=== PATIENT | female | born 1950 | race Caucasian/White ===

== ENCOUNTER 2018-04-27 10:50 | Day surgery (SDC) | payer MEDICARE, MEDICAID ==
[~2018-04-27] VITALS: Ht 167.6 cm; Wt 100.1 kg
[2018-04-27] VITALS (12 sets, daily range): BP systolic 98–138; BP diastolic 41–83
[2018-04-27] MEDS ORDERED: LORazepam 0.5 MG tablet PO PRN (11:25)
[2018-04-27] MEDS ORDERED: normal saline 1000ml 1,000 ML IV SCH (11:25)
[2018-04-27] MEDS ORDERED: nitroGLYCERIN 0.4mg SUBLingual tab SL PRN (11:25)
[2018-04-27] MEDS ORDERED: diphenhydrAMINE 25mg capsule PO PRN (11:25)
[2018-04-27 12:17] LABS: BASOPHILS % (AUTO) 0.2 % (0-1); EOSINOPHILS # (AUTO) 0.2 X10'3 (0-0.9); EOSINOPHILS % (AUTO) 1.9 % (0-6); HEMATOCRIT 42.2 % (35.0-45.0); HEMOGLOBIN 14.1 g/dl (12.0-16.0); LYMPHOCYTES # (AUTO) 1.5 X10'3 (1.1-4.8); LYMPHOCYTES % (AUTO) 16.5 % (21-51); MEAN CORPUSCULAR HEMOGLOBIN 32.2 PG (27.0-31.0); MEAN CORPUSCULAR HGB CONC 33.5 % (33.0-36.5); MEAN CORPUSCULAR VOLUME 96.1 FL (78-98); MEAN PLATELET VOLUME 9.6 FL (7.4-10.4); MONOCYTES # (AUTO) 0.5 X10'3 (0-0.9); MONOCYTES % (AUTO) 5.7 % (2-12); NEUTROPHILS # (AUTO) 6.7 X10'3 (1.8-7.7); NEUTROPHILS % (AUTO) 75.7 % (42-75); PLATELET COUNT 203 X10'3 (140-440); RED BLOOD COUNT 4.39 X10'6 (4.20-5.60); RED CELL DISTRIBUTION WIDTH 15.1 % (11.5-14.5); WHITE BLOOD COUNT 8.8 X10'3 (4.5-11.0)
[2018-04-27] MEDS ORDERED: PROP10TA10 PO (12:23)
[2018-04-27] MEDS ORDERED: LOSA25TA96 PO (12:23)
[2018-04-27] MEDS ORDERED: CARSR60C PO (12:23)
[2018-04-27] MEDS ORDERED: ASPI-1264 PO (12:23)
[2018-04-27] MEDS ORDERED: OMEP20TA23 PO (12:23)
[2018-04-27] MEDS ORDERED: LEVO50TA PO (12:23)
[2018-04-27 13:05] LABS: ALBUMIN 3.3 G/DL (3.4-5.0); ANION GAP 12 (8-16); BLOOD UREA NITROGEN 12 MG/DL (7-18); BUN/CREATININE RATIO 16.2 (6.6-38.0); CALCIUM 8.5 MG/DL (8.5-10.1); CHLORIDE 102 MMOL/L (99-107); CREATININE 0.74 MG/DL (0.40-0.90); GLUCOSE 98 MG/DL (70-104); PARTIAL THROMBOPLASTIN TIME 25 SECONDS (22-32); POTASSIUM 4.2 MMOL/L (3.5-5.1); SODIUM 139 MMOL/L (135-145); TOTAL CARBON DIOXIDE 25.5 MMOL/L (24-32); eGFR 79 ML/MIN
[2018-04-27] MEDS ORDERED: LIDOcaine 1% (10mg/ml)w/preservative injection 20ml MDV ONE (13:40)
[2018-04-27] MEDS ORDERED: iohexol 350MG/ML 100ml bottle IV ONE (13:40)
[2018-04-27] MEDS ORDERED: fentaNYL/PF 50MCG/1 ML 2ML syringe ONE (13:40)
[2018-04-27] MEDS ORDERED: midazolam 2 mg/2 ml injection ONE ×2 (13:40→14:02)
[2018-04-27] MEDS ORDERED: iohexol 350 MG/ML 50ML vial IV ONE (13:40)
[2018-04-27] MEDS ORDERED: HYDROcodone/acetaminophen 10/325mg tab PO PRN (16:15)
[2018-04-27] MEDS ORDERED: ondansetron/PF 4mg/2ml inj IV PRN (16:15)
[2018-04-27] MEDS ORDERED: proCHLORperazine 10 MG/2 ml inj IV PRN (16:15)
[2018-04-27] MEDS ORDERED: OXAZEpam 15mg capsule PO PRN (16:15)
[2018-04-27] MEDS ORDERED: HYDROcodone/acetaminophen 5mg/325mg tablet PO PRN (16:15)
[2018-04-27] MEDS ORDERED: acetaminophen 325mg tablet PO PRN (16:15)
== END 2018-04-27 20:34 | disposition home or self-care (01) ==
LOC: SSTAY O 10:50
PROVIDERS: ATTEND Internal Medicine Cardiovascular Disease
DX: I25.10 Atherosclerotic heart disease of native coronary artery without angina pectoris (principal); I48.2 Chronic atrial fibrillation; I10 Essential (primary) hypertension; F41.1 Generalized anxiety disorder; M19.90 Unspecified osteoarthritis, unspecified site; E03.9 Hypothyroidism, unspecified; Z88.0 Allergy status to penicillin; Z88.2 Allergy status to sulfonamides; Z88.8 Allergy status to other drugs, medicaments and biological substances; Z90.49 Acquired absence of other specified parts of digestive tract; Z90.710 Acquired absence of both cervix and uterus; Z72.89 Other problems related to lifestyle; Z79.82 Long term (current) use of aspirin; Z98.890 Other specified postprocedural states; Z79.899 Other long term (current) drug therapy
CPT/HCPCS: 36415; 71046; 80048; 85025; 85610; 85730; 93458; 99152; 99153; A6257; C1760; C1769; J1644; J2001; J2250; J3010; J7030; Q0163; Q9967; A4620

== ENCOUNTER 2018-06-14 05:16 | Inpatient (IN) | payer MEDICARE, MEDICAID ==
[2018-06-12 14:39] LABS: BASOPHILS # (AUTO) 0.1 X10'3 (0-0.2); BASOPHILS % (AUTO) 1.3 % (0-1); EOSINOPHILS # (AUTO) 0.1 X10'3 (0-0.9); EOSINOPHILS % (AUTO) 1.3 % (0-6); LYMPHOCYTES # (AUTO) 1.8 X10'3 (1.1-4.8); LYMPHOCYTES % (AUTO) 19.4 % (21-51); MEAN CORPUSCULAR HEMOGLOBIN 31.9 PG (27.0-31.0); MEAN CORPUSCULAR HGB CONC 33.5 % (33.0-36.5); MEAN PLATELET VOLUME 9.5 FL (7.4-10.4); MONOCYTES # (AUTO) 0.5 X10'3 (0-0.9); MONOCYTES % (AUTO) 5.6 % (2-12); NEUTROPHILS % (AUTO) 72.4 % (42-75); PRE OP HEMATOCRIT 45.4 % (35.0-45.0); PRE OP HEMOGLOBIN 15.2 g/dL (12.0-16.0); PRE OP PLATELET COUNT 248 X10'3 (140-440); RED BLOOD COUNT 4.78 X10'6 (4.20-5.60); RED CELL DISTRIBUTION WIDTH 12.9 % (11.5-14.5)
[2018-06-12 14:56] LABS: HEMOGLOBIN A1C 5.3 % (4.5-6.2)
[2018-06-12 14:58] LABS: CLARITY,URINE SLIGHTLY CLOUDY (Clear); COLOR,URINE YELLOW (Yellow); GLUCOSE, URINE NEGATIVE (Neg); KETONES,URINE NEGATIVE (Neg); LEUKOCYTE ESTERASE ,URINE TRACE (Neg); NITRITES, URINE NEGATIVE (Neg); OCCULT BLOOD,URINE NEGATIVE (Neg); PH,URINE 5.5 (4.8-8.0); PROTEIN,URINE NEGATIVE (Neg); UROBILINOGEN,URINE 0.2 E.U/dL (0.2-1.0)
[2018-06-12 15:01] LABS: ALBUMIN 3.3 G/DL (3.4-5.0); ALBUMIN/GLOBULIN RATIO 0.9 (1.1-1.5); ALKALINE PHOSPHATASE 95 IU/L (46-116); BLOOD UREA NITROGEN 15 MG/DL (7-18); BUN/CREATININE RATIO 18.5 (6.6-38.0); CALCIUM 9.2 MG/DL (8.5-10.1); CHLORIDE 101 MMOL/L (99-107); CREATININE 0.81 MG/DL (0.40-0.90); PRE OP ALT 29 U/L (30-65); PRE OP ANION GAP 7 (8-16); PRE OP AST 19 U/L (10-37); PRE OP BILIRUB, TOTAL 0.7 MG/DL (0.0-1.0); PRE OP GLUCOSE 127 MG/DL (70-104); PRE OP POTASSIUM 3.8 MMOL/L (3.4-5.1); PRE OP SODIUM 139 MMOL/L (135-145); TOTAL CARBON DIOXIDE 30.8 MMOL/L (24-32); TOTAL PROTEIN 7.1 G/DL (6.4-8.2); eGFR 71 ML/MIN
[2018-06-12 15:03] LABS: UA COLLECTION TYPE CLN CATCH MIDSTREAM
[2018-06-12 15:11] LABS: MUCUS STRANDS MANY /LPF (Neg); SQUAMOUS EPITHELIAL CELL,UR MANY /LPF (FEW)
[2018-06-12 15:12] LABS: BACTERIA,URINE FEW /HPF (Neg); RBC,URINE 0-2 /HPF (0-2); WBC,URINE 0-4 /HPF (0-4)
[2018-06-13 05:25] LABS: ABG HCO3 24.9 mmol/L (22.0-26.0); ABG PCO2 (T) 37.3 mmHg (32.0-45.0); ABG PH (T) 7.442 (7.350-7.450); ABG PO2 (T) 88.3 mmHg (83-108); ALLEN'S TEST Positive; FCOHb 0.8 % (0.5-1.5); FMetHb 0.1 % (0.3-1.12); FO2Hb 96.1 % (94-100); TOTAL HEMOGLOBIN 15.6 G/dl (12.0-16.0)
[2018-06-14] VITALS (17 sets, daily range): BP systolic 92–136; BP diastolic 51–92
[~2018-06-14] VITALS: Ht 167.6 cm; Wt 110.0 kg
[2018-06-14] MEDS: insulin regular, human 100 UNIT in normal saline 100ml IV soln 99 ML IV SCH ×2 (05:00)
[~2018-06-14 05:16] MED LIST: ASPI-1264 PO; CARSR60C PO; LEVO50TA PO; LOSA25TA96 PO; OMEP20TA23 PO; PROP10TA10 PO; dextrose 50%-water 50ml dispensing syringe IV PRN; ringers solution, lacted 1,000 ML IV SCH
[2018-06-14] MEDS ORDERED: DOCUMENT DATE & TIME OF BETA-BLOCKER PO ONE (05:30)
[2018-06-14] MEDS ORDERED: cefazolin/dext.iso 2gm/100 ML IV ONE (05:30)
[2018-06-14] MEDS ORDERED: mupirocin 2% nasal ointment 1gm UD NS ONE (05:30)
[2018-06-14] MEDS ORDERED: dextrose 50%-water 50ml dispensing syringe IV PRN ×2 (05:30→11:15)
[2018-06-14] MEDS ORDERED: famotidine 20mg tablet PO ONE (05:30)
[2018-06-14] MEDS ORDERED: LORazepam 2 mg/ml vial IV ONE (05:30)
[2018-06-14] MEDS ORDERED: vancomycin inj 1,500 MG in normal saline 300ml IV soln IV ONE (05:30)
[2018-06-14] MEDS ORDERED: LIDOcaine 1% (10mg/ml) 2ml vial ONE (05:55)
[2018-06-14] MEDS ORDERED: INSULIN R 100 UNIT in NS 100ML (1 UNIT/1 ML) BAG IV ONE (06:41)
[2018-06-14] MEDS ORDERED: protamine sulf. 10mg/ml inj. IV ONE (06:41)
[2018-06-14] MEDS ORDERED: aminocaproic acid 250 MG/1 ML inj. ONE ×2 (06:41→09:00)
[2018-06-14] MEDS ORDERED: DOPamine/D5W 400mg/250ml bag IV ONE (06:41)
[2018-06-14] MEDS ORDERED: sevoflurane 250ml liquid IH ONE (06:41)
[2018-06-14] MEDS ORDERED: nitroGLYCERIN in D5W 50mg/250ml (Tridil) infusion IV ONE (06:41)
[2018-06-14] MEDS ORDERED: niCARDipine in NS 40mg/200ml (0.2mg/ml) IVPB IV ONE (06:41)
[2018-06-14] MEDS ORDERED: MIDAZolam 1mg/ml 10ml vial ONE (06:43)
[2018-06-14] MEDS ORDERED: SUFENTANIL CITRATE 50 MCG/ML 2ml ampule IV ONE (06:43)
[2018-06-14 07:50] LABS: ABG BASE EXCESS -0.4 mmol/L (-2.0-3.0); ABG HCO3 23.4 mmol/L (22.0-26.0); ABG OXYGEN SATURATION 99.4 % (95-98); ABG PCO2 35.6 mmHg (35.0-45.0); ABG PH 7.435 (7.350-7.450); ABG PO2 246.1 mmHg (60.0-100.0); CL (ABG) 103 mmol/L (99-107); FCOHb 0.7 % (0.5-1.5); FMetHb 0.3 % (0.3-1.12); FO2Hb 98.4 % (94-100); GLUCOSE (ABG) 129 mg/dl (70-105); IONIZED CA (ABG) 1.14 mmol/L (1.03-1.32); K (ABG) 3.8 mmol/L (3.3-5.1); NA (ABG) 134 mmol/L (135-145); TOTAL HEMOGLOBIN 13.1 G/dl (12.0-16.0)
[2018-06-14] MEDS ORDERED: vancomycin 1,000mg inj ONE (07:55)
[2018-06-14] MEDS ORDERED: heparin 10,000 units/1 ML INJ IR ONE (08:00)
[2018-06-14] MEDS ORDERED: rocuronium 10mg/ml inj IV ONE ×3 (08:01)
[2018-06-14] MEDS ORDERED: propofol inj 20 ML IV ONE ×2 (08:01)
[2018-06-14] MEDS ORDERED: papaverine 30 mg/ml 2ml inj. IA ONE (08:05)
[2018-06-14] MEDS ORDERED: heparin 1,000 units/ml 10ml inj ONE (09:00)
[2018-06-14] MEDS ORDERED: albumin (human) 25% 100 ML IV solution IV ONE (09:00)
[2018-06-14] MEDS ORDERED: calcium chloride 100 MG/1 ML inj IV ONE (09:00)
[2018-06-14] MEDS ORDERED: heparin 10,000 units/1 ML INJ ONE (09:00)
[2018-06-14] MEDS ORDERED: LIDOcaine 2% (20 mg/ml) 5ml cardiac syringe ONE (09:00)
[2018-06-14] MEDS ORDERED: magnesium sulf 1 GM/2 ML ONE (09:00)
[2018-06-14] MEDS ORDERED: sodium bicarbonate (8.4%) 1 mEq/ml syringe ONE (09:00)
[2018-06-14] MEDS ORDERED: potassium Cl 2 mEq/ml inj IV ONE (09:00)
[2018-06-14] MEDS ORDERED: phenylephrine 10mg/ml inj. ONE (09:00)
[2018-06-14] MEDS ORDERED: methylPREDNISolone sod succ 1000mg vial ONE (09:00)
[2018-06-14 09:10] LABS: ABG BASE EXCESS -0.3 mmol/L (-2.0-3.0); ABG HCO3 23.2 mmol/L (22.0-26.0); ABG OXYGEN SATURATION 99.1 % (95-98); ABG PCO2 33.6 mmHg (35.0-45.0); ABG PH 7.457 (7.350-7.450); ABG PO2 332.4 mmHg (60.0-100.0); CL (ABG) 103 mmol/L (99-107); FCOHb 0.3 % (0.5-1.5); FMetHb 0.4 % (0.3-1.12); FO2Hb 98.4 % (94-100); GLUCOSE (ABG) 113 mg/dl (70-105); IONIZED CA (ABG) 1.01 mmol/L (1.03-1.32); K (ABG) 4.5 mmol/L (3.3-5.1); NA (ABG) 131 mmol/L (135-145)
[2018-06-14 09:31] LABS: ABG BASE EXCESS VENOUS -0.1 mmol/L; ABG HCO3 VENOUS 24.8 mmol/L; ABG PCO2 VENOUS 41.6 mmHg; ABG PO2 VENOUS 49.1 mmHg; CL (ABG) 103 mmol/L (99-107); FCOHb VENOUS 0.4 %; FHHb VENOUS 16.1 %; FMetHb VENOUS 0.4 %; FO2Hb VENOUS 83.1 %; GLUCOSE (ABG) 112 mg/dl (70-105); IONIZED CA (ABG) 1.03 mmol/L (1.03-1.32); NA (ABG) 132 mmol/L (135-145); TOTAL HEMOGLOBIN 9.8 G/dl (12.0-16.0)
[2018-06-14 10:11] LABS: ABG BASE EXCESS 2.5 mmol/L (-2.0-3.0); ABG HCO3 26.8 mmol/L (22.0-26.0); ABG OXYGEN SATURATION 99.2 % (95-98); ABG PCO2 40.2 mmHg (35.0-45.0); ABG PH 7.441 (7.350-7.450); ABG PO2 412.9 mmHg (60.0-100.0); CL (ABG) 102 mmol/L (99-107); FCOHb 0.3 % (0.5-1.5); FMetHb 0.4 % (0.3-1.12); FO2Hb 98.5 % (94-100); GLUCOSE (ABG) 154 mg/dl (70-105); IONIZED CA (ABG) 1.23 mmol/L (1.03-1.32); K (ABG) 4.3 mmol/L (3.3-5.1); NA (ABG) 133 mmol/L (135-145); TOTAL HEMOGLOBIN 9.7 G/dl (12.0-16.0)
[2018-06-14 10:11] LABS: ACT @ 1.70 U 301 SEC (193-297); ACT @ 2.84 U 426 SEC (260-420); BASELINE ACT 138 SEC (101-148); PATIENT WEIGHT 96.0k KG
[2018-06-14 10:41] LABS: ABG BASE EXCESS VENOUS 0.7 mmol/L; ABG HCO3 VENOUS 25.3 mmol/L; ABG PCO2 VENOUS 40.7 mmHg; ABG PO2 VENOUS 47.9 mmHg; CL (ABG) 103 mmol/L (99-107); FCOHb VENOUS 0.6 %; FHHb VENOUS 16.9 %; FMetHb VENOUS 0.2 %; FO2Hb VENOUS 82.3 %; GLUCOSE (ABG) 158 mg/dl (70-105); IONIZED CA (ABG) 1.22 mmol/L (1.03-1.32); K (ABG) 4.4 mmol/L (3.3-5.1); NA (ABG) 132 mmol/L (135-145); TOTAL HEMOGLOBIN 9.6 G/dl (12.0-16.0)
[2018-06-14] MEDS ORDERED: sodium chloride 0.45% 1,000 ML IV SCH (11:11)
[2018-06-14] MEDS ORDERED: DOPamine 400mg/D5W 250ml 250 ML IV PRN (11:11)
[2018-06-14] MEDS ORDERED: nitroGLYCERIN-Tridil 50MG/D5W 250 ML IV PRN (11:11)
[2018-06-14] MEDS ORDERED: sodium phosphate inj. 30 MMOL in dextrose 5%-water 250 ML IV PRN (11:15)
[2018-06-14] MEDS ORDERED: pantoprazole 40 MG vial IV ONE (11:15)
[2018-06-14] MEDS ORDERED: Neutra Phos packet PO PRN (11:15)
[2018-06-14] MEDS ORDERED: metoclopramide 5 mg/ml inj IV PRN (11:15)
[2018-06-14] MEDS ORDERED: HYDROcodone/acetaminophen 10/325mg tab PO PRN (11:15)
[2018-06-14] MEDS ORDERED: magnesium hydroxide 30ml (MOM) UD suspension PO PRN (11:15)
[2018-06-14] MEDS ORDERED: normal saline 250ml IV soln 250 ML IV PRN (11:15)
[2018-06-14] MEDS ORDERED: magnesium 4gm in 100ml NS 100 ML IV PRN (11:15)
[2018-06-14] MEDS ORDERED: ondansetron/PF 4mg/2ml inj IV PRN (11:15)
[2018-06-14] MEDS ORDERED: sodium phosphate inj. 15 MMOL in dextrose 5%-water 150 ML IV PRN (11:15)
[2018-06-14] MEDS ORDERED: insulin regular, human inj. 100 UNITS in normal saline 100ml IV soln 100 ML IV SCH ×2 (11:15)
[2018-06-14] MEDS ORDERED: potassium Cl 20mEq/100mL bag 100 ML IV PRN ×2 (11:15)
[2018-06-14] MEDS ORDERED: acetaminophen 325mg tablet PO PRN (11:15)
[2018-06-14 11:44] LABS: BASOPHILS % (AUTO) 0.3 % (0-1); EOSINOPHILS % (AUTO) 0.3 % (0-6); HEMATOCRIT 36.7 % (35.0-45.0); HEMOGLOBIN 12.5 g/dl (12.0-16.0); LYMPHOCYTES # (AUTO) 0.6 X10'3 (1.1-4.8); LYMPHOCYTES % (AUTO) 3.9 % (21-51); MEAN CORPUSCULAR HGB CONC 33.9 % (33.0-36.5); MEAN CORPUSCULAR VOLUME 94.3 FL (78-98); MEAN PLATELET VOLUME 8.5 FL (7.4-10.4); MONOCYTES # (AUTO) 0.4 X10'3 (0-0.9); MONOCYTES % (AUTO) 2.5 % (2-12); NEUTROPHILS # (AUTO) 13.7 X10'3 (1.8-7.7); PLATELET COUNT 129 X10'3 (140-440); RED BLOOD COUNT 3.89 X10'6 (4.20-5.60); RED CELL DISTRIBUTION WIDTH 13.8 % (11.5-14.5); WHITE BLOOD COUNT 14.7 X10'3 (4.5-11.0)
[2018-06-14 11:54] LABS: INR 1.1 INR; PARTIAL THROMBOPLASTIN TIME 26 SECONDS (22-32); PROTHROMBIN TIME 11.2 SECONDS (9.0-12.0)
[2018-06-14 11:55] LABS: ABG BASE EXCESS 0.1 mmol/L (-2.0-3.0); ABG HCO3 23.2 mmol/L (22.0-26.0); ABG PH (T) 7.464 (7.350-7.450); ABG PO2 (T) 204.5 mmHg (83-108); FCOHb 0.2 % (0.5-1.5); FMetHb 0.2 % (0.3-1.12); FO2Hb 98.6 % (94-100); MINUTE VOLUME 7 L/min; PEEP 5 cm H2O; RESPIRATORY RATE 12 b/min; RESPIRATORY RATE (OBSERVED) 12 b/min; TIDAL VOLUME 550 mL; TOTAL HEMOGLOBIN 13.3 G/dl (12.0-16.0)
[2018-06-14 11:59] LABS: ALANINE AMINOTRANSFERASE 19 U/L (12-78); ALBUMIN 2.4 G/DL (3.4-5.0); ALKALINE PHOSPHATASE 60 IU/L (46-116); ANION GAP 6 (8-16); ASPARTATE AMINO TRANSFERASE 26 U/L (10-37); BILIRUBIN,TOTAL 1.1 MG/DL (0.1-1.0); BLOOD UREA NITROGEN 8 MG/DL (7-18); BUN/CREATININE RATIO 11.4 (6.6-38.0); CALCIUM 9.5 MG/DL (8.5-10.1); CHLORIDE 106 MMOL/L (99-107); GLUCOSE 159 MG/DL (70-104); MAGNESIUM 3.1 MG/DL (1.5-2.4); PHOSPHORUS 2.9 MG/DL (2.3-4.5); SODIUM 139 MMOL/L (135-145); TOTAL CARBON DIOXIDE 26.8 MMOL/L (24-32); TOTAL PROTEIN 4.7 G/DL (6.4-8.2); eGFR 84 ML/MIN
[2018-06-14 12:01] LABS: POTASSIUM 4.2 MMOL/L (3.5-5.1)
[2018-06-14] MEDS: albumin (Human) 5% 250ml 250 ML IV PRN ×3 (12:58→13:39)
[2018-06-14] MEDS: insulin Lispro (HumaLOG) vial - multi-dose SQ SCH ×2 (13:00→18:00)
[2018-06-14] MEDS: potassium Cl 20mEq/100mL bag 100 ML IV PRN ×3 (13:33→23:25)
[2018-06-14 14:00] LABS: ACTIVATED CLOTTING TIME 109 SEC (101-148)
[2018-06-14] MEDS: morphine 4 MG/ML inj SYRINge IV PRN ×3 (14:03→19:36)
[2018-06-14] MEDS: ceFAZolin 1GM/D5W- ADD-VANTAGE 50 ML IV SCH (16:16)
[2018-06-14] MEDS: niCARDipine-NS 40mg/200ml IVPB 200 ML IV PRN ×2 (16:21→19:38)
[2018-06-14] MEDS ORDERED: racepinephrine 11.25mg/0.5ml nebule IH PRN (17:35)
[2018-06-14 18:42] LABS: BASOPHILS % (AUTO) 0 % (0-1); EOSINOPHILS # (AUTO) 0.2 X10'3 (0-0.9); EOSINOPHILS % (AUTO) 1.8 % (0-6); HEMATOCRIT 31.6 % (35.0-45.0); HEMOGLOBIN 10.6 g/dl (12.0-16.0); LYMPHOCYTES # (AUTO) 0.3 X10'3 (1.1-4.8); MEAN CORPUSCULAR HEMOGLOBIN 31.9 PG (27.0-31.0); MEAN CORPUSCULAR HGB CONC 33.4 % (33.0-36.5); MEAN CORPUSCULAR VOLUME 95.7 FL (78-98); MEAN PLATELET VOLUME 8.7 FL (7.4-10.4); MONOCYTES # (AUTO) 0.2 X10'3 (0-0.9); MONOCYTES % (AUTO) 1.2 % (2-12); PLATELET COUNT 129 X10'3 (140-440); RED CELL DISTRIBUTION WIDTH 13.4 % (11.5-14.5); WHITE BLOOD COUNT 13.7 X10'3 (4.5-11.0)
[2018-06-14 18:52] LABS: ALBUMIN 3.3 G/DL (3.4-5.0); ANION GAP 8 (8-16); BLOOD UREA NITROGEN 9 MG/DL (7-18); BUN/CREATININE RATIO 11.1 (6.6-38.0); CALCIUM 8.3 MG/DL (8.5-10.1); CHLORIDE 108 MMOL/L (99-107); CREATININE 0.81 MG/DL (0.40-0.90); GLUCOSE 171 MG/DL (70-104); MAGNESIUM 2.3 MG/DL (1.5-2.4); PHOSPHORUS 3.3 MG/DL (2.3-4.5); POTASSIUM 3.7 MMOL/L (3.5-5.1); SODIUM 142 MMOL/L (135-145); TOTAL CARBON DIOXIDE 26.3 MMOL/L (24-32); eGFR 71 ML/MIN
[2018-06-14] MEDS: vancomycin/NS 1 GM ADD-VANTAGE 250 ML IV SCH (19:38)
[2018-06-14] MEDS: mupirocin 2% nasal ointment 1gm UD NS SCH (19:38)
[2018-06-14] MEDS: docusate sod 100mg capsule PO SCH (19:39)
[2018-06-15] VITALS (24 sets, daily range): BP systolic 102–144; BP diastolic 52–95
[2018-06-15] MEDS: ceFAZolin 1GM/D5W- ADD-VANTAGE 50 ML IV SCH ×3 (00:05→16:17)
[2018-06-15] MEDS: morphine 4 MG/ML inj SYRINge IV PRN ×2 (01:52→09:33)
[2018-06-15 02:17] LABS: BASOPHILS # (AUTO) 0.1 X10'3 (0-0.2); BASOPHILS % (AUTO) 0.6 % (0-1); EOSINOPHILS % (AUTO) 0 % (0-6); HEMATOCRIT 29.4 % (35.0-45.0); HEMOGLOBIN 9.8 g/dl (12.0-16.0); LYMPHOCYTES # (AUTO) 0.4 X10'3 (1.1-4.8); LYMPHOCYTES % (AUTO) 2.7 % (21-51); MEAN CORPUSCULAR HEMOGLOBIN 31.8 PG (27.0-31.0); MEAN CORPUSCULAR HGB CONC 33.3 % (33.0-36.5); MEAN CORPUSCULAR VOLUME 95.5 FL (78-98); MEAN PLATELET VOLUME 9.1 FL (7.4-10.4); MONOCYTES # (AUTO) 0.3 X10'3 (0-0.9); MONOCYTES % (AUTO) 2.3 % (2-12); NEUTROPHILS % (AUTO) 94.4 % (42-75); PLATELET COUNT 107 X10'3 (140-440); RED BLOOD COUNT 3.07 X10'6 (4.20-5.60); RED CELL DISTRIBUTION WIDTH 13.9 % (11.5-14.5); WHITE BLOOD COUNT 13.8 X10'3 (4.5-11.0)
[2018-06-15 02:32] LABS: PARTIAL THROMBOPLASTIN TIME 27 SECONDS (22-32); PROTHROMBIN TIME 10.3 SECONDS (9.0-12.0)
[2018-06-15 02:39] LABS: ALANINE AMINOTRANSFERASE 20 U/L (12-78); ALBUMIN 3.1 G/DL (3.4-5.0); ALBUMIN/GLOBULIN RATIO 1.4 (1.1-1.5); ALKALINE PHOSPHATASE 48 IU/L (46-116); ANION GAP 5 (8-16); ASPARTATE AMINO TRANSFERASE 35 U/L (10-37); BILIRUBIN,TOTAL 0.9 MG/DL (0.1-1.0); BLOOD UREA NITROGEN 9 MG/DL (7-18); BUN/CREATININE RATIO 12.7 (6.6-38.0); CALCIUM 8.3 MG/DL (8.5-10.1); CHLORIDE 111 MMOL/L (99-107); CREATININE 0.71 MG/DL (0.40-0.90); GLUCOSE 127 MG/DL (70-104); MAGNESIUM 2.3 MG/DL (1.5-2.4); PHOSPHORUS 3.1 MG/DL (2.3-4.5); POTASSIUM 4.3 MMOL/L (3.5-5.1); SODIUM 142 MMOL/L (135-145); TOTAL CARBON DIOXIDE 26.5 MMOL/L (24-32); TOTAL PROTEIN 5.3 G/DL (6.4-8.2); eGFR 82 ML/MIN
[2018-06-15] MEDS: HYDROcodone/acetaminophen 10/325mg tab PO PRN ×3 (04:40→21:08)
[2018-06-15] MEDS: insulin regular, human 100 UNIT in normal saline 100ml IV soln 99 ML IV SCH ×2 (05:00)
[2018-06-15] MEDS ORDERED: amiodarone 200mg tablet PO ONE (06:40)
[2018-06-15] MEDS ORDERED: aspirin 325mg tablet, delayed-release (Ecotrin) PO SCH (08:00)
[2018-06-15] MEDS ORDERED: amiodarone 200mg tablet PO SCH (08:00)
[2018-06-15] MEDS: metoprolol tartrate 12.5mg (1/2 tablet) PO SCH ×2 (08:00→20:23)
[2018-06-15] MEDS: levoTHYROXINE 25mcg tablet PO SCH (08:29)
[2018-06-15] MEDS: vancomycin/NS 1 GM ADD-VANTAGE 250 ML IV SCH ×2 (08:29→20:23)
[2018-06-15] MEDS: mupirocin 2% nasal ointment 1gm UD NS SCH ×2 (08:29→20:23)
[2018-06-15] MEDS: docusate sod 100mg capsule PO SCH ×2 (08:30→20:23)
[2018-06-15] MEDS: aspirin 81mg tablet.DR PO SCH (08:30)
[2018-06-15] MEDS: insulin Lispro (HumaLOG) vial - multi-dose SQ SCH ×2 (08:37→13:00)
[2018-06-15] MEDS: magnesium 1gm/100ml D5W IVPB 100 ML IV PRN ×2 (15:04→15:48)
[2018-06-16] VITALS (23 sets, daily range): BP systolic 96–153; BP diastolic 56–88
[2018-06-16] MEDS: ceFAZolin 1GM/D5W- ADD-VANTAGE 50 ML IV SCH (00:20)
[2018-06-16] MEDS: HYDROcodone/acetaminophen 10/325mg tab PO PRN ×5 (03:30→19:59)
[2018-06-16 04:01] LABS: BASOPHILS % (AUTO) 0.1 % (0-1); EOSINOPHILS % (AUTO) 0 % (0-6); HEMATOCRIT 27.4 % (35.0-45.0); HEMOGLOBIN 9.1 g/dl (12.0-16.0); LYMPHOCYTES # (AUTO) 0.5 X10'3 (1.1-4.8); LYMPHOCYTES % (AUTO) 2.9 % (21-51); MEAN CORPUSCULAR HEMOGLOBIN 31.9 PG (27.0-31.0); MEAN CORPUSCULAR HGB CONC 33.1 % (33.0-36.5); MEAN CORPUSCULAR VOLUME 96.2 FL (78-98); MEAN PLATELET VOLUME 9.8 FL (7.4-10.4); MONOCYTES # (AUTO) 0.6 X10'3 (0-0.9); MONOCYTES % (AUTO) 3.2 % (2-12); NEUTROPHILS # (AUTO) 16.7 X10'3 (1.8-7.7); NEUTROPHILS % (AUTO) 93.8 % (42-75); PLATELET COUNT 111 X10'3 (140-440); RED BLOOD COUNT 2.85 X10'6 (4.20-5.60); RED CELL DISTRIBUTION WIDTH 14.1 % (11.5-14.5); WHITE BLOOD COUNT 17.8 X10'3 (4.5-11.0)
[2018-06-16 04:04] LABS: ANION GAP 5 (8-16); BLOOD UREA NITROGEN 9 MG/DL (7-18); BUN/CREATININE RATIO 13.8 (6.6-38.0); CALCIUM 8.3 MG/DL (8.5-10.1); CHLORIDE 103 MMOL/L (99-107); CREATININE 0.65 MG/DL (0.40-0.90); GLUCOSE 150 MG/DL (70-104); MAGNESIUM 2.3 MG/DL (1.5-2.4); PHOSPHORUS 2.8 MG/DL (2.3-4.5); SODIUM 136 MMOL/L (135-145); TOTAL CARBON DIOXIDE 28.1 MMOL/L (24-32); eGFR > 90 ML/MIN
[2018-06-16] MEDS ORDERED: furosemide 40mg/4ml inj IV ONE (06:45)
[2018-06-16] MEDS: pantoprazole 40mg Tablet.DR PO SCH (07:21)
[2018-06-16] MEDS: levoTHYROXINE 25mcg tablet PO SCH (07:21)
[2018-06-16] MEDS: aspirin 81mg tablet.DR PO SCH (07:21)
[2018-06-16] MEDS: docusate sod 100mg capsule PO SCH ×2 (07:21→19:58)
[2018-06-16] MEDS: metoprolol tartrate 12.5mg (1/2 tablet) PO SCH ×2 (07:21→19:58)
[2018-06-16] MEDS: mupirocin 2% nasal ointment 1gm UD NS SCH (07:22)
[2018-06-16] MEDS: magnesium 1gm/100ml D5W IVPB 100 ML IV PRN ×2 (11:42→13:44)
[2018-06-16] MEDS ORDERED: losartan 25mg tablet PO SCH (21:00)
[2018-06-17] VITALS (24 sets, daily range): BP systolic 85–128; BP diastolic 50–90
[2018-06-17] MEDS: HYDROcodone/acetaminophen 10/325mg tab PO PRN ×5 (00:51→23:34)
[2018-06-17 03:02] LABS: BASOPHILS # (AUTO) 0.1 X10'3 (0-0.2); BASOPHILS % (AUTO) 0.3 % (0-1); EOSINOPHILS % (AUTO) 0 % (0-6); HEMATOCRIT 26.4 % (35.0-45.0); HEMOGLOBIN 8.9 g/dl (12.0-16.0); LYMPHOCYTES # (AUTO) 0.8 X10'3 (1.1-4.8); LYMPHOCYTES % (AUTO) 4.9 % (21-51); MEAN CORPUSCULAR HEMOGLOBIN 32.1 PG (27.0-31.0); MEAN CORPUSCULAR HGB CONC 33.5 % (33.0-36.5); MEAN CORPUSCULAR VOLUME 95.8 FL (78-98); MEAN PLATELET VOLUME 9.8 FL (7.4-10.4); MONOCYTES % (AUTO) 6.1 % (2-12); NEUTROPHILS # (AUTO) 13.8 X10'3 (1.8-7.7); NEUTROPHILS % (AUTO) 88.7 % (42-75); PLATELET COUNT 112 X10'3 (140-440); RED BLOOD COUNT 2.76 X10'6 (4.20-5.60); RED CELL DISTRIBUTION WIDTH 14.1 % (11.5-14.5); WHITE BLOOD COUNT 15.6 X10'3 (4.5-11.0)
[2018-06-17 03:31] LABS: ALBUMIN 2.7 G/DL (3.4-5.0); ANION GAP 6 (8-16); BLOOD UREA NITROGEN 12 MG/DL (7-18); BUN/CREATININE RATIO 19.7 (6.6-38.0); CALCIUM 8.6 MG/DL (8.5-10.1); CHLORIDE 100 MMOL/L (99-107); CREATININE 0.61 MG/DL (0.40-0.90); GLUCOSE 117 MG/DL (70-104); MAGNESIUM 2.3 MG/DL (1.5-2.4); PHOSPHORUS 3.1 MG/DL (2.3-4.5); POTASSIUM 4.3 MMOL/L (3.5-5.1); SODIUM 138 MMOL/L (135-145); TOTAL CARBON DIOXIDE 31.9 MMOL/L (24-32); eGFR > 90 ML/MIN
[2018-06-17] MEDS: levoTHYROXINE 25mcg tablet PO SCH (06:47)
[2018-06-17] MEDS: pantoprazole 40mg Tablet.DR PO SCH (06:47)
[2018-06-17] MEDS: docusate sod 100mg capsule PO SCH ×2 (08:16→19:40)
[2018-06-17] MEDS: diltiazem CD 120mg capsule (once-daily) PO SCH (08:16)
[2018-06-17] MEDS: metoprolol tartrate 12.5mg (1/2 tablet) PO SCH ×2 (08:17→19:40)
[2018-06-17] MEDS: aspirin 81mg tablet.DR PO SCH (08:17)
[2018-06-18] VITALS (14 sets, daily range): BP systolic 82–116; BP diastolic 55–70
[2018-06-18 03:10] LABS: BASOPHILS % (AUTO) 0.1 % (0-1); EOSINOPHILS # (AUTO) 0.1 X10'3 (0-0.9); EOSINOPHILS % (AUTO) 0.9 % (0-6); HEMATOCRIT 27.9 % (35.0-45.0); HEMOGLOBIN 9.3 g/dl (12.0-16.0); LYMPHOCYTES # (AUTO) 1.7 X10'3 (1.1-4.8); LYMPHOCYTES % (AUTO) 15.3 % (21-51); MEAN CORPUSCULAR HEMOGLOBIN 31.9 PG (27.0-31.0); MEAN CORPUSCULAR HGB CONC 33.3 % (33.0-36.5); MEAN CORPUSCULAR VOLUME 96.1 FL (78-98); MEAN PLATELET VOLUME 9.4 FL (7.4-10.4); MONOCYTES # (AUTO) 0.5 X10'3 (0-0.9); MONOCYTES % (AUTO) 4.5 % (2-12); NEUTROPHILS % (AUTO) 79.2 % (42-75); PLATELET COUNT 136 X10'3 (140-440); RED CELL DISTRIBUTION WIDTH 13.9 % (11.5-14.5); WHITE BLOOD COUNT 11.3 X10'3 (4.5-11.0)
[2018-06-18 03:44] LABS: ALBUMIN 2.5 G/DL (3.4-5.0); ANION GAP 3 (8-16); BLOOD UREA NITROGEN 12 MG/DL (7-18); CALCIUM 8.3 MG/DL (8.5-10.1); CHLORIDE 102 MMOL/L (99-107); GLUCOSE 101 MG/DL (70-104); MAGNESIUM 2.2 MG/DL (1.5-2.4); PHOSPHORUS 3.9 MG/DL (2.3-4.5); POTASSIUM 4.2 MMOL/L (3.5-5.1); SODIUM 139 MMOL/L (135-145); TOTAL CARBON DIOXIDE 33.8 MMOL/L (24-32); eGFR > 90 ML/MIN
[2018-06-18] MEDS: pantoprazole 40mg Tablet.DR PO SCH (07:13)
[2018-06-18] MEDS: levoTHYROXINE 25mcg tablet PO SCH (07:13)
[2018-06-18] MEDS: diltiazem CD 120mg capsule (once-daily) PO SCH (08:26)
[2018-06-18] MEDS: metoprolol tartrate 12.5mg (1/2 tablet) PO SCH (08:26)
[2018-06-18] MEDS: aspirin 81mg tablet.DR PO SCH (08:26)
[2018-06-18] MEDS: docusate sod 100mg capsule PO SCH (08:26)
[2018-06-18] MEDS: HYDROcodone/acetaminophen 10/325mg tab PO PRN ×2 (08:29→13:36)
== END 2018-06-18 13:40 | DRG 235 ==
LOC: PAS IN 05:16 → EDSTATUS 07:30 → CICU 2S 11:20
PROVIDERS: ADMIT Thoracic Surgery (Cardiothoracic Vascular Surgery); ATTEND Thoracic Surgery (Cardiothoracic Vascular Surgery)
PROC: 021009W Bypass Coronary Artery, One Artery from Aorta with Autologous Venous Tissue, Open Approach (ICD-10-PCS; 2018-06-14)
PROC: 03BC3ZZ Excision of Left Radial Artery, Percutaneous Approach (ICD-10-PCS; 2018-06-14)
PROC: B24BZZ4 Ultrasonography of Heart with Aorta, Transesophageal (ICD-10-PCS; 2018-06-14)
PROC: 5A1221Z Performance of Cardiac Output, Continuous (ICD-10-PCS; 2018-06-14)
PROC: 02L70CK Occlusion of Left Atrial Appendage with Extraluminal Device, Open Approach (ICD-10-PCS; 2018-06-14)
PROC: 02HV33Z Insertion of Infusion Device into Superior Vena Cava, Percutaneous Approach (ICD-10-PCS; 2018-06-14)
PROC: 30233M1 Transfusion of Nonautologous Plasma Cryoprecipitate into Peripheral Vein, Percutaneous Approach (ICD-10-PCS; 2018-06-14)
PROC: 02100Z9 Bypass Coronary Artery, One Artery from Left Internal Mammary, Open Approach (ICD-10-PCS; principal; 2018-06-14 06:41)
DX: I25.10 Atherosclerotic heart disease of native coronary artery without angina pectoris (principal); I50.31 Acute diastolic (congestive) heart failure; E03.9 Hypothyroidism, unspecified; I11.0 Hypertensive heart disease with heart failure; I48.2 Chronic atrial fibrillation; M25.561 Pain in right knee; E66.9 Obesity, unspecified; R94.39 Abnormal result of other cardiovascular function study; F41.9 Anxiety disorder, unspecified; J45.909 Unspecified asthma, uncomplicated; K21.9 Gastro-esophageal reflux disease without esophagitis; M19.90 Unspecified osteoarthritis, unspecified site; Z90.710 Acquired absence of both cervix and uterus; Z98.1 Arthrodesis status; Z88.0 Allergy status to penicillin; Z88.2 Allergy status to sulfonamides; Z88.8 Allergy status to other drugs, medicaments and biological substances; Z79.899 Other long term (current) drug therapy; Z79.82 Long term (current) use of aspirin; Z68.39 Body mass index [BMI] 39.0-39.9, adult
CPT/HCPCS: 0232T; 93312; 93325; 36415; 36600; 71045; 71046; 80048; 80053; 81001; 82330; 82435; 82803; 82947; 82948; 83036; 83735; 84100; 84132; 84295; 84443; 85018; 85025; 85347; 85384; 85610; 85730; 86885; 86900; 86901; 86920; 87070; 93005; 93880; 93971; 94002; 94003; 94010; 94668; 94760; 97110; 97116; 97162; 97530; A6255; A6258; A6402; A6449; A7000; A7048; C1751; C9113; G0378; J0690; J1265; J1644; J1815; J1940; J2001; J2060; J2150; J2250; J2270; J2370; J2440; J2704; J2720; J2930; J3370; J3475; J3480; J3490; J7030; J7120; P9012; P9045; P9047

== ENCOUNTER 2024-06-21 11:11 | Observation (INO) | payer MEDICARE, MEDICAID ==
[~2024-06-21] VITALS: Ht 167.6 cm; Wt 84.2 kg
[2024-06-21] VITALS (20 sets, daily range): BP systolic 108–144; BP diastolic 50–78; PULSE 60–67; RESP 11–18; TEMP 97.2–98.7; O2SAT 92–98
[2024-06-21] MEDS: clindamycin-Cleocin 900mg/D5W 50 ML IV ONE (05:30)
[2024-06-21] MEDS: DOCUMENT DATE & TIME OF BETA-BLOCKER PO ONE (05:30)
[~2024-06-21 11:11] MED LIST changes: +ALIR75PE5 SQ; -ASPI-1264 PO; +ASPI81TA52 PO; -CARSR60C PO; +DILT120C20 PO; +LIDOcaine 1% (10mg/ml)w/preservative inj. 20ml MDV ONE; -LOSA25TA96 PO; +OMEP10CA5 PO; -OMEP20TA23 PO; +clindamycin-Cleocin 900mg/D5W 50 ML IV ONE; -dextrose 50%-water 50ml dispensing syringe IV PRN; +famotidine 20mg tablet PO ONE
[2024-06-21 12:57] LABS: BASOPHILS % (AUTO) 0.6 % (0-1); EOSINOPHILS # (AUTO) 0.1 X10'3 (0-0.9); EOSINOPHILS % (AUTO) 1.4 % (0-6); LYMPHOCYTES # (AUTO) 1.1 X10'3 (1.1-4.8); LYMPHOCYTES % (AUTO) 19.3 % (21-51); MEAN CORPUSCULAR HEMOGLOBIN 34.1 PG (27.0-31.0); MEAN CORPUSCULAR HGB CONC 33.9 g/dL (33.0-36.5); MEAN CORPUSCULAR VOLUME 100.5 FL (78-98); MEAN PLATELET VOLUME 8.6 FL (7.4-10.4); MONOCYTES # (AUTO) 0.5 X10'3 (0-0.9); MONOCYTES % (AUTO) 9.3 % (2-12); NEUTROPHILS # (AUTO) 4.1 X10'3 (1.8-7.7); NEUTROPHILS % (AUTO) 69.4 % (42-75); PRE OP HEMATOCRIT 44.8 % (35.0-45.0); PRE OP HEMOGLOBIN 15.2 g/dL (12.0-16.0); PRE OP PLATELET COUNT 179 X10'3 (140-440); PRE OP WHITE BLOOD COUNT 5.9 10'3 (4.8-10.8); RED BLOOD COUNT 4.45 X10'6 (4.20-5.60); RED CELL DISTRIBUTION WIDTH 15.8 % (11.5-14.5)
[2024-06-21 13:08] LABS: PRE OP INR 1.1 INR; PRE OP PROTIME 11.3 SECONDS (9.0-12.0)
[2024-06-21 13:09] LABS: ALBUMIN 3.3 G/DL (3.4-5.0); ALBUMIN/GLOBULIN RATIO 0.9 (1.1-1.5); ALKALINE PHOSPHATASE 103 IU/L (46-116); BLOOD UREA NITROGEN 5 MG/DL (7-18); BUN/CREATININE RATIO 6.5 (10.0-20.0); CALCIUM 8.7 MG/DL (8.5-10.1); CHLORIDE 101 MMOL/L (99-107); CREATININE 0.77 MG/DL (0.40-0.90); PRE OP ALT 27 U/L (30-65); PRE OP ANION GAP 5 (8-16); PRE OP AST 37 U/L (10-37); PRE OP BILIRUB, TOTAL 1.2 MG/DL (0.0-1.0); PRE OP GLUCOSE 93 MG/DL (70-104); PRE OP POTASSIUM 3.7 MMOL/L (3.4-5.1); PRE OP SODIUM 136 MMOL/L (135-145); TOTAL CARBON DIOXIDE 29.9 MMOL/L (24-32); TOTAL PROTEIN 6.9 G/DL (6.4-8.2); eCRCL 62 ML/MIN; eGFR 74 ML/MIN
[2024-06-21] MEDS: ringers solution, lacted 1,000 ML IV SCH ×2 (13:12→19:23)
[2024-06-21] MEDS: famotidine 20mg tablet PO ONE (13:16)
[2024-06-21 14:38] LABS: BILIRUBIN,URINE SMALL (Neg); CLARITY,URINE CLEAR (Clear); COLOR,URINE YELLOW (Yellow); GLUCOSE, URINE NEGATIVE (Neg); KETONES,URINE 15 mg/dl (Neg); LEUKOCYTE ESTERASE ,URINE TRACE (Neg); NITRITES, URINE NEGATIVE (Neg); OCCULT BLOOD,URINE NEGATIVE (Neg); PH,URINE 5.5 (4.8-8.0); PROTEIN,URINE NEGATIVE (Neg); UROBILINOGEN,URINE 0.2 E.U/dL (0.2-1.0)
[2024-06-21 14:42] LABS: UA COLLECTION TYPE NON-SPECIFIED
[2024-06-21 14:45] LABS: BACTERIA,URINE FEW /HPF (Neg); WBC,URINE 0-4 /HPF (0-4)
[2024-06-21] MEDS ORDERED: meperidine/PF 25mg/ml syringe IV PRN (14:45)
[2024-06-21] MEDS ORDERED: morphine 2 MG/ML inj. syringe IV PRN (14:45)
[2024-06-21] MEDS ORDERED: hydrALAZINE 20mg/ml inj. IV PRN (14:45)
[2024-06-21] MEDS ORDERED: labetalol 20mg/4ml (5mg/ml) syringe IV PRN (14:45)
[2024-06-21] MEDS ORDERED: HYDROmorphone/PF 0.2 MG/ML SYRINGE IV PRN ×2 (14:45)
[2024-06-21] MEDS ORDERED: morphine 4 MG/ML inj SYRINge IV PRN (14:45)
[2024-06-21] MEDS ORDERED: ondansetron/PF 4mg/2ml inj IV PRN ×2 (14:45→16:40)
[2024-06-21] MEDS ORDERED: proCHLORperazine 10 MG/2 ml inj IV PRN (14:45)
[2024-06-21 14:46] LABS: MUCUS STRANDS MODERATE /LPF (Neg); SQUAMOUS EPITHELIAL CELL,UR MANY /LPF (FEW)
[2024-06-21] MEDS ORDERED: sevoflurane 250ml liquid IH ONE (14:48)
[2024-06-21] MEDS ORDERED: fentaNYL/PF 50MCG/1 ML 2ML syringe ONE (15:00)
[2024-06-21] MEDS ORDERED: midazolam 1 mg/ML 2ml injection ONE (15:00)
[2024-06-21] MEDS ORDERED: propofol inj 20 ML IV ONE ×2 (15:32)
[2024-06-21] MEDS ORDERED: ondansetron/PF 4mg/2ml inj ONE (15:32)
[2024-06-21] MEDS ORDERED: dexamethasone sod phosphate 4mg/ml inj. ONE (15:32)
[2024-06-21] MEDS: ROPIVAcaine 0.5% (5mg/ml) 30ml vial SQ ONE (15:39)
[2024-06-21] MEDS: LIDOcaine 1% 30ml preserv. free vial SQ ONE (15:39)
[2024-06-21] MEDS ORDERED: ROPIVAcaine 0.5% (5mg/ml) 30ml vial ONE (15:53)
[2024-06-21] MEDS ORDERED: naloxone 0.4 mg/ml inj IV PRN (16:40)
[2024-06-21] MEDS ORDERED: HYDROcodone/acetaminophen 5mg/325mg tablet PO PRN (16:40)
[2024-06-21] MEDS: acetaminophen 1,000mg/100ml IV 100 ML IV ONE (19:23)
[2024-06-21] MEDS: propranolol 10mg tablet PO SCH (20:51)
[2024-06-22 02:00] VITALS: BP 127/61; PULSE 64; RESP 14; TEMP 97.2; O2SAT 97
[2024-06-22 05:42] LABS: BASOPHILS % (AUTO) 0 % (0-1); EOSINOPHILS % (AUTO) 0 % (0-6); HEMATOCRIT 44.8 % (35.0-45.0); HEMOGLOBIN 15.1 g/dl (12.0-16.0); LYMPHOCYTES # (AUTO) 0.4 X10'3 (1.1-4.8); LYMPHOCYTES % (AUTO) 5.9 % (21-51); MEAN CORPUSCULAR HEMOGLOBIN 34.2 PG (27.0-31.0); MEAN CORPUSCULAR HGB CONC 33.7 g/dL (33.0-36.5); MEAN CORPUSCULAR VOLUME 101.4 FL (78-98); MEAN PLATELET VOLUME 8.9 FL (7.4-10.4); MONOCYTES # (AUTO) 0.1 X10'3 (0-0.9); NEUTROPHILS % (AUTO) 92.1 % (42-75); PLATELET COUNT 178 X10'3 (140-440); RED BLOOD COUNT 4.41 X10'6 (4.20-5.60); RED CELL DISTRIBUTION WIDTH 15.7 % (11.5-14.5); WHITE BLOOD COUNT 6.5 X10'3 (4.5-11.0)
[2024-06-22 06:00] VITALS: BP 117/63; PULSE 65; RESP 13; TEMP 97.4; O2SAT 98
[2024-06-22] MEDS: diltiazem CD 120mg capsule (once-daily) PO SCH (07:12)
[2024-06-22] MEDS: pantoprazole 40mg Tablet.DR PO SCH (07:13)
[2024-06-22] MEDS: levoTHYROXINE 25mcg tablet PO SCH (07:13)
[2024-06-22 08:00] VITALS: RESP 16; O2SAT 98
[2024-06-22 11:00] VITALS: BP 113/65; PULSE 69; RESP 14; TEMP 98; O2SAT 96
== END 2024-06-22 13:55 | disposition home or self-care (01) ==
LOC: PRE-OP 11:11 → PCU 3S 16:39
PROVIDERS: ADMIT Surgery; ATTEND Surgery
DX: I48.20 Chronic atrial fibrillation, unspecified (principal); I49.5 Sick sinus syndrome; I25.10 Atherosclerotic heart disease of native coronary artery without angina pectoris; J45.909 Unspecified asthma, uncomplicated; E03.9 Hypothyroidism, unspecified; M19.90 Unspecified osteoarthritis, unspecified site; Z86.2 Personal history of diseases of the blood and blood-forming organs and certain disorders involving the immune mechanism; Z79.899 Other long term (current) drug therapy; Z88.0 Allergy status to penicillin; Z90.710 Acquired absence of both cervix and uterus
CPT/HCPCS: 33207; 71048; 80053; 81001; 82948; 85610; 85730; 86885; 86900; 86901; 93005; A4215; A4565; A4618; A7000; C1786; C1898; G0378; J3490; J7120; 36415; 71045; 85025; A6258; A6402; J1100; J2003; J2250; J2405; J2704; J2795; J3010